=== PATIENT | male | born 1980 | race African-American/Black ===

== ENCOUNTER 2019-03-01 13:02 | Emergency (ER) | payer SELFPAY ==
[~2019-03-01] VITALS: Ht 188 cm; Wt 90.9 kg
[2019-03-01 13:26] VITALS: BP 155/81
== END 2019-03-01 15:42 | disposition left against medical advice (07) ==
LOC: EMS 13:03
DX: N50.89 Other specified disorders of the male genital organs (principal); Z53.21 Procedure and treatment not carried out due to patient leaving prior to being seen by health care provider